=== PATIENT | male | born 1950 | race Hispanic/Latino ===

== ENCOUNTER 2019-07-02 12:39 | Inpatient (IN) | payer MEDICARE, OTHER ==
[~2019-07-02] VITALS: Ht 182.9 cm; Wt 83.5 kg
[~2019-07-02 12:39] MED LIST: AMLO5TAB9 PO; ASPI-555 PO; LISI40TA4 PO; METO-408 PO; SIMV-46 PO
[2019-07-02] MEDS ORDERED: ASPIRIN 325 MG TABLET ONE (13:04)
[2019-07-02] MEDS ORDERED: ASPIRIN 81MG TAB.CHEW ONE (13:07)
[2019-07-02 13:13] LABS: BASOPHILS % (AUTO) 0.1 % (0.0-5.0); EOSINOPHILS % (AUTO) 1.7 % (0.0-8.0); HEMATOCRIT 41.9 % (42-54); MEAN CORPUSCULAR HEMOGLOBIN 30.5 pg (27.0-33.0); MEAN CORPUSCULAR HGB CONC 34.1 g/dL (32.0-36.0); MEAN CORPUSCULAR VOLUME 89.3 fL (79-99); NEUTROPHILS % (AUTO) 77.9 % (40.0-77.0); PLATELET COUNT (AUTO) 191 K/uL (130-400); RED BLOOD CELL COUNT(AUTO) 4.69 MIL/uL (4.50-6.20); RED CELL DISTRIBUTION WIDTH 12.3 % (11.0-15.5); WHITE BLOOD COUNT (AUTO) 8.8 K/uL (4.8-10.8)
[2019-07-02] MEDS ORDERED: NITROGLYCERIN 1GM/1 INCH PACKET TD ONE ×3 (13:16→20:45)
[2019-07-02 13:27] LABS: CREATININE 1.3 mg/dL (0.5-1.5); INR 1.03 (0.85-1.15); PARTIAL THROMBOPLASTIN TIME 28.2 SEC (26.3-35.5); POTASSIUM 3.8 mmol/L (3.5-5.1); PROTHROMBIN TIME 11.1 SEC (9.6-11.6)
[2019-07-02 13:32] LABS: ALBUMIN 4.3 g/dL (3.5-5.0); BILIRUBIN,TOTAL 0.9 mg/dL (0.2-1.0); TOTAL PROTEIN, SERUM 8.1 g/dL (6.0-8.3)
[2019-07-02] MEDS ORDERED: HYDRALAZINE HCL 20 MG/ML VIAL IV PRN (14:45)
[2019-07-02] MEDS ORDERED: ATORVASTATIN CALCIUM 20 MG TABLET PO SCH (14:45)
[2019-07-02] MEDS ORDERED: METOPROLOL TARTRATE 25 MG TAB PO SCH (14:45)
[2019-07-02 15:02] LABS: APPEARANCE,URINE CLOUDY (CLEAR); BILIRUBIN,URINE MODERATE (NEGATIVE); GLUCOSE, URINE (UA) 100 mg/dL (NEGATIVE); KETONES,URINE 15 mg/dL (NEGATIVE); LEUKOCYTE ESTERASE ,URINE MODERATE (NEGATIVE); NITRATE,URINE POSITIVE (NEGATIVE); OCCULT BLOOD,URINE LARGE (NEGATIVE); PROTEIN,URINE >=300 mg/dL (NEGATIVE)
[2019-07-02 15:07] LABS: COLOR,URINE RED (YELLOW)
[2019-07-02 15:26] LABS: RBC,URINE TNTC /HPF (0-1)
[2019-07-02 15:27] LABS: BACTERIA,URINE Moderate /HPF (None Seen); WBC,URINE 26-50 /HPF (0-1)
[2019-07-02] MEDS ORDERED: METOPROLOL TARTRATE 25 MG TAB ONE ×2 (15:40→22:21)
[2019-07-02 17:35] LABS: THYROID STIMULATING HORMONE 0.89 uIU/mL (0.36-3.74)
[2019-07-02] MEDS ORDERED: ATORVASTATIN CALCIUM 40 MG TABLET ONE (22:21)
[2019-07-03 05:25] LABS: CREATINE KINASE, TOTAL 258 U/L (21-232); MYOGLOBIN 142 ng/mL (10-92); TROPONIN I < 0.04 ng/mL (0.00-0.06)
[2019-07-03] MEDS ORDERED: ASPIRIN 81MG TAB.CHEW ONE (08:09)
[2019-07-03] MEDS ORDERED: ENOXAPARIN SODIUM 30 MG/0.3 ML SQ ONE (08:10)
[2019-07-03] MEDS ORDERED: METOPROLOL TARTRATE 25 MG TAB ONE (08:11)
[2019-07-03] MEDS ORDERED: NITROGLYCERIN 1GM/1 INCH PACKET TD ONE ×2 (08:11→18:41)
[2019-07-03] MEDS ORDERED: FAMOTIDINE 20MG TAB 20 MG TAB ONE (08:20)
[2019-07-03] MEDS ORDERED: ATOR20TA65 PO (10:40)
[2019-07-03] MEDS ORDERED: OMEP40CA13 PO (10:40)
[2019-07-03] MEDS ORDERED: METO25TA6 PO (10:40)
[2019-07-03] MEDS ORDERED: LACT1CAP78 PO (10:41)
[2019-07-03] MEDS ORDERED: ACETAMINOPHEN EXTRA STRENGTH 500 MG TABLET ONE (16:52)
[2019-07-03] MEDS ORDERED: ACETAMINOPHEN EXTRA STRENGTH 500 MG TABLET PO PRN (18:00)
--- NOTE | 2019-07-03 19:17 | NUR ---
cm note met with patient and states resides at home with spouse, independent with adls and ambulation.. no dme. dc plan is back home. no dc needs. Addendum: 07/03/19 at 1919 by JOSE MANUEL DOE CM Amended: Links added.
[2019-07-03 21:32] VITALS: BP 136/87
[2019-07-03] MEDS: ASPIRIN 81MG TAB.CHEW PO SCH (22:55)
[2019-07-03] MEDS: ENOXAPARIN SODIUM 30 MG/0.3 ML SQ SCH (22:55)
[2019-07-03] MEDS: NITROGLYCERIN 1GM/1 INCH PACKET TD SCH ×4 (22:55→23:19)
[2019-07-03] MEDS: FAMOTIDINE 20MG TAB 20 MG TAB PO SCH ×3 (22:55→23:12)
[2019-07-03] MEDS: ATORVASTATIN CALCIUM 40 MG TABLET PO SCH ×2 (22:55→23:12)
[2019-07-03] MEDS: CEFTRIAXONE SODIUM 1 GM IVP SCH ×2 (22:55→23:12)
[2019-07-03] MEDS: METOPROLOL TARTRATE 25 MG TAB PO SCH ×3 (22:55→23:11)
[2019-07-03 23:11] VITALS: BP 126/72
[2019-07-04 04:18] VITALS: BP 120/68
[2019-07-04] MEDS: NITROGLYCERIN 1GM/1 INCH PACKET TD SCH ×4 (05:00→22:38)
[2019-07-04 08:11] VITALS: BP 119/78
[2019-07-04] MEDS: METOPROLOL TARTRATE 25 MG TAB PO SCH ×2 (10:10→21:00)
[2019-07-04] MEDS: ENOXAPARIN SODIUM 30 MG/0.3 ML SQ SCH (10:11)
[2019-07-04] MEDS: FAMOTIDINE 20MG TAB 20 MG TAB PO SCH ×2 (10:12→21:00)
[2019-07-04] MEDS: ASPIRIN 81MG TAB.CHEW PO SCH (10:12)
[2019-07-04 11:53] VITALS: BP 120/76
[2019-07-04 16:00] VITALS: BP 130/79
[2019-07-04 19:00] VITALS: BP 124/82
[2019-07-04] MEDS: ATORVASTATIN CALCIUM 40 MG TABLET PO SCH (21:00)
[2019-07-04] MEDS: CEFTRIAXONE SODIUM 1 GM IVP SCH (21:00)
[2019-07-04 22:36] LABS: BASOPHILS % (AUTO) 0.5 % (0.0-5.0); EOSINOPHILS % (AUTO) 0.9 % (0.0-8.0); LYMPHOCYTES % (AUTO) 31.5 % (21.0-51.0); MEAN CORPUSCULAR HEMOGLOBIN 29.8 pg (27.0-33.0); MEAN CORPUSCULAR HGB CONC 32.7 g/dL (32.0-36.0); MEAN CORPUSCULAR VOLUME 91.1 fL (79-99); MONOCYTES % (AUTO) 8.9 % (3.0-13.0); NEUTROPHILS % (AUTO) 57.6 % (40.0-77.0); PLATELET COUNT (AUTO) 171 K/uL (130-400); RED CELL DISTRIBUTION WIDTH 12.2 % (11.0-15.5); WHITE BLOOD COUNT (AUTO) 6.4 K/uL (4.8-10.8)
[2019-07-04 23:00] VITALS: BP 124/76
[2019-07-04 23:23] LABS: CARBON DIOXIDE 28 mmol/L (21-32); CHLORIDE 103 mmol/L (101-111); CREATININE 1.4 mg/dL (0.5-1.5); GLOMERULAR FILTR. RATE CALC 53 mL/min (>60); GLUCOSE,RANDOM 122 mg/dL (70-105); POTASSIUM 3.6 mmol/L (3.5-5.1); SODIUM SERUM 141 mmol/L (136-145); UREA NITROGEN, BLOOD 15 mg/dL (7-18)
[2019-07-05 04:00] VITALS: BP 122/56
[2019-07-05] MEDS: NITROGLYCERIN 1GM/1 INCH PACKET TD SCH (05:19)
--- NOTE | 2019-07-05 08:15 | NUR ---
AM ASSESSMENT PT LAYING IN BED, WATCHING TV. SPOUSE @ BEDSIDE. A/O X 3. NO SOB. NO DISTRESS NOTED. DENIES CHEST PAIN OR DISCOMFORT. DENIES PALPITATIONS. TELE: SB. DENIES N/V AND/OR DIARRHEA. UP AD EMIL. INSTRUCTED TO CALL FOR ASSISTANCE. CALL MATEUS W/IN REACH.
[2019-07-05 08:30] VITALS: BP 126/75
[2019-07-05] MEDS: ASPIRIN 81MG TAB.CHEW PO SCH (08:50)
[2019-07-05] MEDS: FAMOTIDINE 20MG TAB 20 MG TAB PO SCH ×2 (08:50→08:58)
[2019-07-05] MEDS: METOPROLOL TARTRATE 25 MG TAB PO SCH (08:50)
[2019-07-05] MEDS: ENOXAPARIN SODIUM 30 MG/0.3 ML SQ SCH (08:51)
[2019-07-05] MEDS ORDERED: LEVOFLOXACIN 500 MG TABLET PO SCH (09:00)
[2019-07-05] MEDS ORDERED: TAMSULOSIN HCL 0.4 MG CAP.ER.24H PO SCH (09:00)
[2019-07-05] MEDS ORDERED: PANTOPRAZOLE SODIUM 40 MG TABLET.DR PO SCH (09:00)
[2019-07-05] MEDS ORDERED: LEVO500T2 PO (09:07)
[2019-07-05] MEDS ORDERED: TAMS-1 PO (09:07)
--- NOTE | 2019-07-05 10:45 | NUR ---
DISCHARGE VERBAL & WRITTEN DISCHARGE INSTRUCTION REVIEWED & GIVEN TO PT & SPOUSE. QUESTIONS ENCOURAGED & CLARIFIED. PROPER CARE & MGT OF CHEST PAIN REVIEWED. NEW PRESCRIBED MEDICATIONS REVIEWED. REINFORCED IMPORTANCE OF COMPLETING ABX THERAPY INDICATED. STATES UNDERSTANDING. INFORMED PRESCRIPTION TRANSMITTED TP PHARMACY IN FILE. PT TO F/U W/PCP, CARDIOLOGY, & GI MD. TELE JENNIFER REMOVED. IV DC'D. PT & SPOUSE TO GATHER PERSONAL BELONGINGS. WILL NOTIFY STAFF WHEN READY TO BE TAKEN TO PRIVATE VEHICLE.
--- NOTE | 2019-07-05 11:05 | NUR ---
DISCHARGE PT TAKEN TO PRIVATE VEHICLE VIA WC BY Claire BORRERO PCP, ACCOMPANIED BY SPOUSE. NO DISTRESS NOTED.
== END 2019-07-05 11:05 | disposition home or self-care (01) | DRG 392 ==
LOC: EDH 12:39 → EDHIP 14:33 → 2DH 07-03 21:03
PROVIDERS: ADMIT Family Medicine; ATTEND Family Medicine
DX: K22.2 Esophageal obstruction (principal); N39.0 Urinary tract infection, site not specified; I25.110 Atherosclerotic heart disease of native coronary artery with unstable angina pectoris; K21.9 Gastro-esophageal reflux disease without esophagitis; Z95.5 Presence of coronary angioplasty implant and graft; I25.2 Old myocardial infarction; R31.0 Gross hematuria; E78.5 Hyperlipidemia, unspecified; I10 Essential (primary) hypertension; N40.0 Benign prostatic hyperplasia without lower urinary tract symptoms; Z80.8 Family history of malignant neoplasm of other organs or systems; Z82.5 Family history of asthma and other chronic lower respiratory diseases; Z90.79 Acquired absence of other genital organ(s); Z82.49 Family history of ischemic heart disease and other diseases of the circulatory system; Z82.3 Family history of stroke
CPT/HCPCS: 36415; 71045; 74018; 76770; 80048; 80053; 80061; 81001; 82550; 83735; 83874; 84100; 84145; 84443; 84484; 85025; 85610; 85730; 93005; 93880; G0378; J0696; J1650

== ENCOUNTER → 2023-03-11 | Outpatient (CLI) | payer MEDICARE ==
[~2023-03-11] MED LIST changes: +AMLO-257 PO; -AMLO5TAB9 PO; -ASPI-555 PO; +ASPI-556 PO; +ATOR20TA65 PO; +LACT1CAP78 PO; +LEVO500T2 PO; -LISI40TA4 PO; +LISI40TA9 PO; -METO-408 PO; +METO25TA6 PO; +OMEP40CA21 PO; -SIMV-46 PO; +TAMS-1 PO
== END | disposition home or self-care (01) ==
LOC: RAH 12:23
PROVIDERS: ATTEND Internal Medicine Gastroenterology
DX: R13.12 Dysphagia, oropharyngeal phase (principal); R63.30 Feeding difficulties, unspecified
CPT/HCPCS: 74230; 92611

== ENCOUNTER 2023-10-12 05:11 | Emergency (ER) | payer MEDICARE ==
[~2023-10-12] VITALS: Ht 182.9 cm; Wt 89.4 kg
[2023-10-12 06:05] LABS: BASOPHILS # (AUTO) 0.04 K/uL (0.00-0.20); BASOPHILS % (AUTO) 0.8 % (0.0-5.0); EOSINOPHILS # (AUTO) 0.09 K/uL (0.00-0.70); EOSINOPHILS % (AUTO) 1.8 % (0.0-8.0); HEMATOCRIT 40.2 % (42-54); IMMATURE GRANULOCYTE ABSOLUTE 0.05 K/uL (0-1); LYMPHOCYTES # (AUTO) 1.2 K/uL (1.0-4.8); LYMPHOCYTES % (AUTO) 23.5 % (21.0-51.0); MEAN CORPUSCULAR HEMOGLOBIN 31.4 pg (27.0-33.0); MEAN CORPUSCULAR HGB CONC 35.6 g/dL (32.0-36.0); MEAN CORPUSCULAR VOLUME 88.2 fL (79-99); MONOCYTES # (AUTO) 0.5 K/uL (0.1-1.0); MONOCYTES % (AUTO) 9.9 % (3.0-13.0); NEUTROPHILS # (AUTO) 3.1 K/uL (1.8-7.7); PLATELET COUNT (AUTO) 155 K/uL (130-400); RED BLOOD CELL COUNT(AUTO) 4.56 MIL/uL (4.50-6.20); RED CELL DISTRIBUTION WIDTH 12.1 % (11.0-15.5); WHITE BLOOD COUNT (AUTO) 4.9 K/uL (4.8-10.8)
[2023-10-12] MEDS: HYDRALAZINE HCL 10 MG TABLET PO SCH (06:19)
[2023-10-12 06:24] LABS: ALBUMIN 3.4 g/dL (3.5-5.0); BILIRUBIN,TOTAL 0.4 mg/dL (0.2-1.0); CREATININE 1.1 mg/dL (0.5-1.3); POTASSIUM 3.4 mmol/L (3.5-5.1); TOTAL PROTEIN, SERUM 6.9 g/dL (6.0-8.3)
[2023-10-12] MEDS ORDERED: ACET-66 PO (08:12)
[2023-10-12 08:16] VITALS: BP 150/94; PULSE 56; RESP 16; O2SAT 98
== END 2023-10-12 08:30 | disposition home or self-care (01) ==
LOC: EDH 05:11
DX: R51.9 Headache, unspecified (principal); H57.11 Ocular pain, right eye; I10 Essential (primary) hypertension; Z79.82 Long term (current) use of aspirin; Z79.899 Other long term (current) drug therapy; Z98.890 Other specified postprocedural states
CPT/HCPCS: 36415; 70450; 80053; 85025; 93005

== ENCOUNTER → 2023-11-07 | Outpatient (CLI) | payer MEDICARE ==
[~2023-11-07] MED LIST changes: +ACET-66 PO
== END | disposition home or self-care (01) ==
LOC: SHCH 12:55
PROVIDERS: ATTEND Internal Medicine Cardiovascular Disease
DX: I08.3 Combined rheumatic disorders of mitral, aortic and tricuspid valves (principal)
CPT/HCPCS: 93306

== ENCOUNTER → 2023-11-14 | Outpatient (CLI) | payer MEDICARE | END | disposition home or self-care (01) | LOC: SHCH 07:46 | PROVIDERS: ATTEND Internal Medicine Cardiovascular Disease | DX: I87.2 Venous insufficiency (chronic) (peripheral) (principal); R09.89 Other specified symptoms and signs involving the circulatory and respiratory systems; F41.9 Anxiety disorder, unspecified; Z79.899 Other long term (current) drug therapy | CPT/HCPCS: 93880 ==

== ENCOUNTER → 2023-11-17 | Outpatient (CLI) | payer MEDICARE | END | disposition home or self-care (01) | LOC: SHCH 09:53 | PROVIDERS: ATTEND Internal Medicine Cardiovascular Disease | DX: I87.2 Venous insufficiency (chronic) (peripheral) (principal); R60.0 Localized edema; I11.9 Hypertensive heart disease without heart failure; I25.10 Atherosclerotic heart disease of native coronary artery without angina pectoris; E78.5 Hyperlipidemia, unspecified; Z95.5 Presence of coronary angioplasty implant and graft | CPT/HCPCS: 93970 ==

== ENCOUNTER 2024-12-05 09:28 | Observation (INO) | payer MEDICARE ==
[2024-12-02 13:51] LABS: IMMATURE GRANULOCYTE ABSOLUTE 0.05 K/uL (0-1); NUCLEATED RED BLOOD CELLS 0.0 % (0.0-0.19); PLATELET COUNT (AUTO) 166 K/uL (130-400); RED BLOOD CELL COUNT(AUTO) 4.79 MIL/uL (4.50-6.20); RED CELL DISTRIBUTION WIDTH 12.5 % (11.0-15.5); WHITE BLOOD COUNT (AUTO) 5.7 K/uL (4.8-10.8)
[2024-12-02 14:01] LABS: CREATININE 1.1 mg/dL (0.5-1.3); GLOMERULAR FILTR. RATE CALC 70.0 mL/min (>90); GLUCOSE,RANDOM 108.0 mg/dL (70-105); SODIUM SERUM 140.0 mmol/L (136-145); UREA NITROGEN, BLOOD 13.0 mg/dL (7-18)
[2024-12-02 14:02] LABS: INR 1.03 (0.85-1.15)
[2024-12-02 14:19] VITALS: BP 151/83; PULSE 57; RESP 19; TEMP 97.9
--- NOTE | 2024-12-02 14:41 | HMCIMG ---
EXAM: CR Chest, 1 View. CLINICAL HISTORY: PRE OP COMPARISON: None provided. FINDINGS: LUNGS: Density at the right lung base may reflect a pulmonary nodule or nipple shadow, overall dimension is 1.1 x 1.2 cm. Recommend repeat radiographs with nipple markers or CT imaging for further evaluation. PLEURAL SPACES: No evidence of pleural effusion or pneumothorax. MEDIASTINUM: Cardiac size and mediastinal contours within normal limits. BONES: No aggressive appearing osseous lesion seen. IMPRESSION: 1. 1.1 x 1.2 cm density at the right lung base, may represent pulmonary nodule versus nipple shadow. Recommend repeat radiographs with nipple markers or CT imaging for further evaluation. /[place]
--- NOTE | 2024-12-02 16:24 | NUR ---
CHEST X RAY YANA CARLOS NOTIFIED OF CHEST-X-RAY. OKAY TO PROCEED. SAMANTA GOMEZ INFORMED.
--- NOTE | 2024-12-02 21:31 | EKG ---
[facility] Test Date: 2024-12-02 Test Time: 13:37:19 Pat Name: BRYANNA GAINES Department: [facility] Room: Gender: Marketing Program Manager: [id number] : 1950 Requested By: BRYANNA TOSCANO Order Number: [id number] Reading MD: Amado Obando Measurements Intervals [place] Rate: 52 P: 42 DC: 187 QRS: 9 QRSD: 91 T: 60 QT: 454 QTc: 424 Interpretive Statements Sinus rhythm Compared to ECG 10/12/2023 05:43:52 No significant changes Electronically Signed On 12-03-2024 19:48:55 CDT by Amado Obando Please click the below link to view image of tracing.
[~2024-12-05] VITALS: Ht 182.9 cm; Wt 87.3 kg
[2024-12-05] VITALS (10 sets, daily range): BP systolic 102–165; BP diastolic 61–93; PULSE 50–84; RESP 13–18; TEMP 97–97.8; O2SAT 98
[~2024-12-05 09:28] MED LIST changes: -ACET-66 PO; -LACT1CAP78 PO; -LEVO500T2 PO; +LISI20TA24 PO; -LISI40TA9 PO; +NITR0.4T50 SL; -TAMS-1 PO
[2024-12-05] MEDS: 0.9%NACL 1000ML 1,000 ML IV SCH ×2 (10:15→14:30)
[2024-12-05] MEDS ORDERED: HEParin-NS 1,000 UNIT/500 ML 1,000 ML IV ONE (12:19)
[2024-12-05] MEDS ORDERED: NITROGLYCERIN 50MG VIAL ONE (12:19)
[2024-12-05] MEDS ORDERED: LIDOCAINE HCL 400MG/20ML VIAL ONE (12:19)
[2024-12-05] MEDS ORDERED: IOHEXOL 350 MG/ML 100ML INFUS..BTL IV ONE ×2 (12:19→14:00)
[2024-12-05] MEDS ORDERED: MIDAZOLAM HCL 1 MG/ML 2ML VIAL ONE ×2 (12:34→13:56)
[2024-12-05] MEDS ORDERED: BIVALIRUDIN 250 MG/VIAL IV ONE ×2 (12:50→13:23)
[2024-12-05] MEDS ORDERED: HEParin-NS 1,000 UNIT/500 ML 500 ML IV ONE (13:24)
[2024-12-05] MEDS ORDERED: ATROPINE 1MG SYG IVP ONE (13:48)
[2024-12-05] MEDS ORDERED: EPTIFIBATIDE 75MG/100ML BOTTLE 100 ML IV ONE (14:02)
[2024-12-05] MEDS ORDERED: ADENOSINE 6MG VIAL IV ONE (14:02)
[2024-12-05] MEDS ORDERED: NITROGLYCERIN 0.4 MG SL TAB SL PRN (14:30)
[2024-12-05] MEDS ORDERED: DEXTROSE 50%-WATER 50 ML DISP.SYRIN IV PRN (14:30)
[2024-12-05] MEDS ORDERED: GLUCAGON 1MG KIT 1 MG ML IM PRN (14:30)
--- NOTE | 2024-12-05 15:14 | PRN ---
PROCEDURES: 1. Right common femoral arterial sheath placement. 2. Selective coronary angiogram. 3. Angioplasty to mid and distal LAD 4. Lithotripsy angioplasty to mid LAD with a 4 mm x 12 mm lithotripsy balloon for a total of eight treatments with shockwave device deployed to six atmospheres 5. Intravascular ultrasound of proximal mid and distal LAD. 6. 3 mm x 34 mm jimmy Hamel stent to mid and distal LAD initially deployed to 3.20 mm and then post dilated to 3.50 mm 7. 4.5 mm x 26 mm jimmy Hamel stent to mid LAD in an overlapping fashion with previously placed 3 mm stent deployed to 4.50 mm. INDICATION: Abnormal stress test Class three angina DESCRIPTION OF PROCEDURE: The patient was brought to the catheterization suite and prepped and draped in sterile fashion. IV was started, and not already in place and both groins were exposed for arterial access. 1% lidocaine was used for local anesthesia and then a micropuncture kit was used to gain access once free-flowing blood was seen, modified Seldinger technique was utilized to place a 6 [place] sheath into the right common femoral artery. Next, preformed JL4 and JR 4 catheters were used to selectively engage the [place] coronary vessels and multiple hand contrast injections were performed in different views to define the coronary anatomy. Please see below FINDINGS: The left main artery bifurcates in the LAD and left circumflex in his free of significant stenosis. The stent in the mid LAD has not stent restenosis of 95-98% with an area of stenosis after a stent of 80% and in the distal LAD of 70%. Diagonal branch 1. And diagonal branch 2., high off the LAD and are free of any significant disease. There was a large septal transaction coordinator at diagonal branch 2. Which was patent. The left circumflex artery in its proximal mid segment is free of any significant disease in the distal interventricular groove circ there was 99% in stent restenosis present. The right coronary artery has no appreciable stenoses or atherosclerosis present. It is a dominant system giving rise to the RPDA and RPL. INTERVENTIONAL REPORT: After diagnostic angiography was performed it was felt intervention should be attempted in a staged fashion to the LAD and then left circumflex. Therefore a six [place] q.4 guide catheter was placed into the left coronary system and a choice PT extra-support wire was placed in the distal ongoing LAD. Initially a 2.5 mm x 20 mm balloon semi compliant was then used to pre dilate the affected regions in overlapping fashion. Intravascular ultrasound was performed assessing previously placed stent and the degree of calcium burden above the previously placed stent as well as the sizing of the stent from 17 years ago. This vessel appeared to be 4.5-5 mm in diameter in the mid and proximal portion of previously placed LAD stent. There was also a significant calcium burden noted. Next we went in an with a 3.5 mm x 12 mm noncompliant balloon up to 3.7 mm before significant in stent restenosis dog bone expanded the stent. Next I went in with a 4 mm x 12 mm shockwave device and performed lithotripsy on midportion of LAD and off-label use on proximal portion of previously placed stent. This was done for a total of eight treatments. This was done at six atmospheres. Next I then placed a 3 mm x 34 mm jimmy Hamel stent to the distal LAD covering distal 70% lesion and brought back up to mid section and deployed to 3.20 mm. Next I used the 4.5 mm x 26 mm jimmy Hamel stent in an overlapping fashion with 3 mm stent up to the mid section just below diagonal branch 2. And deployed to 4.5 mm. Follow up intravascular ultrasound revealed the distal portion of the distal LAD stent to be or to need further postdilatation therefore we I went back in with a 3.5 mm x 12 mm NC balloon and post dilated the 3 mm stent to 3.50 mm. Follow up contrast injection well no evidence of dissection or perforation with JUAN two flow noted then adenosine was administered total of 200 mics initially given at 50 mcg then repeated at 50 mcg and then finally at 100 mcg. JUAN three flow then resulted. At end of case Perclose device was used for closure of arteriotomy site and no complications occurred. and RECOMMENDATIONS: Recommend patient stay in the hospital overnight for IV hydration. We will start Integrilin drip. Will start dual antiplatelet therapy Schedule patient for intervention to left circumflex in stent restenosis on Thursday of this week. BRYANNA TOSCANO MD Dec 05, 2024 15:14
--- NOTE | 2024-12-05 15:30 | NUR ---
STENT CARD GIVEN TO PTS
--- NOTE | 2024-12-05 16:22 | NUR ---
DR. KIM AT BEDSIDE WITH PT
--- NOTE | 2024-12-05 17:52 | HP ---
[facility] HISTORY AND PHYSICAL Date of Service: Dec 05, 2024 Time of Service: 17:43 HISTORY OF PRESENT ILLNESS: 74-year-old male with past medical history of hypertension, hyperlipidemia, coronary artery disease, history of esophageal stricture status post balloon dilation, coronary artery disease status post stent placement who presented to the hospital secondary to dyspnea. History is obtained from patient and from chart review. Patient was seen by cardiology clinic as outpatient and had undergone a CCTA which showed 70% ISR in the mid LAD stent placed in 2007. Secondary to persistent symptoms patient was recommended to undergo left heart catheterization. Patient underwent heart catheterization today by Dr Allison and was found to have the following findings : The left main artery bifurcates in the LAD and left circumflex in his free of significant stenosis. The stent in the mid LAD has not stent restenosis of 95-98% with an area of stenosis after a stent of 80% and in the distal LAD of 70%. Diagonal branch 1. And diagonal branch 2., high off the LAD and are free of any significant disease. There was a large septal certified industrial hygienist at diagonal branch 2. Which was patent. The left circumflex artery in its proximal mid segment is free of any significant disease in the distal interventricular groove circ there was 99% in stent restenosis present. The right coronary artery has no appreciable stenoses or atherosclerosis present. It is a dominant system giving rise to the RPDA and RPL. Patient underwent angioplasty to mid and distal LAD, lithotripsy angioplasty to mid LAD with balloon. He had a stent placement from mid and distal LAD and a nother stent to mid LAD in overlapping fashion. Postprocedure patient currently is resting in bed. He denies any active chest p ain, shortness of breath, abdominal pain, nausea, vomiting, fever, chills. Denies any dysuria, abdominal pain. REVIEW OF SYSTEMS CONSTITUTIONAL: Denies fevers, chills, or night sweats. No unintentional weight loss reported. NEUROLOGICAL: Denies headache, amaurosis fugax, motor weakness, sensory deficit, vertigo/spinning sensation, gait abnormalities, or tremors. ENT: No hearing loss, otalgia, otorrhea, rhinitis, rhinorrhea, hoarseness, or sore throat. CARDIOVASCULAR: Denies any exertional angina, dyspnea on exertion, orthopnea, paroxysmal nocturnal dyspnea, palpitations, life-threatening arrhythmias, claudication. PULMONARY: Denies any shortness of breath, cough, phlegm/sputum, hemoptysis, pleuritic chest pain. SLEEP: Denies morning headaches, daytime somnolence or napping. Denies difficulty falling asleep, staying asleep, waking from sleep. Denies knowledge of snoring. GASTROINTESTINAL: Denies any type of dysphagia to either liquids or solids. Denies nausea, vomiting, pyrosis, early satiety, abdominal pain, diarrhea, constipation, or changes in stool consistency or caliber. Denies coffee-ground emesis, hematemesis, hematochezia, or melanotic stools. GENITOURINARY: Denies frequency, urgency, nocturia, hematuria or incontinence (Storage/Irritative symptoms.) Low urinary stream, straining to void, urinary intermittency or hesitancy, splitting of the voiding stream, terminal dribbling. ENDOCRINOLOGIC: Denies polyuria, polydipsia, polyphagia or heat/cold intolerances. HEMATOLOGIC: Denies thrombophilia/previous clots, or coagulopathy/bleeding disorders. ONCOLOGIC: Denies personal history of malignancy. DERMATOLOGIC: Denies rashes or pruritus. PSYCHIATRIC: Denies any suicidal or homicidal ideation. Denies hallucinations. PAST MEDICAL HISTORY: Hypertension, hyperlipidemia, coronary artery disease, history of esophageal stricture PAST SURGICAL HISTORY: History balloon dilation for esophageal stricture, history of heart catheterization, history of right wrist surgery, history of left knee surgery PAST SOCIAL HISTORY: Denied smoking, alcohol, drug use FAMILY HISTORY: Denied any pertinent family history Coded Allergies: No Known Drug Allergies (Unverified Allergy, Unknown, 12/30/16) PHYSICAL EXAM GENERAL APPEARANCE: The patient is awake, alert, and oriented, in no acute cardiopulmonary distress. NEUROLOGICAL: Cranial nerves II-XII grossly intact. Motor is 5/5 in bilateral upper and lower extremities proximal to distal. No sensory deficits. HEENT: Face is symmetric. Pupils are equal and reactive. Extraocular movements are intact. NECK: Supple. No JVD. No thyromegaly. No submental, submandibular, pre-/post auricular, occipital or supraclavicular lymphadenopathy. CHEST: Normal chest expansion. No Telemetry. LUNGS: Absence of any rales, rhonchi or any wheezing. CARDIOVASCULAR: Regular. S1 and S2 normal. No appreciable rubs, murmurs or gallops. ABDOMEN: Soft, nontender, and nondistended. There is no rebound, voluntary guarding, or rigidity. : Deferred. No Yen. EXTREMITIES: Non-edematous and not cyanotic. No clubbing. Good capillary refill. SKIN: No skin breakdown. Vital Sign (Last 24 Hours) 12/05/24 16:40 Pulse 58 Resp 13 B/P (MAP) 165/87 Pulse Ox 98 O2 Delivery Room Air FiO2 21 LABS: Current Medications Medications (Trade) Dose Ordered Sig/Flavia Route PRN Reason Start Time Stop Time Status Last Admin Dose Admin Acetaminophen (TYLenol 500MG TAB) 500 mg Q6H PRN PO MILD PAIN (1-3) 12/05/24 17:00 01/04/25 16:59 Amlodipine Besylate (NorvASC 5MG TAB) 5 mg AM PO 12/06/24 09:00 01/05/25 08:59 Aspirin (Aspirin 81mg Ec Tab) 81 mg AM PO 12/06/24 09:00 01/05/25 08:59 Atorvastatin Calcium (LIPItor 20MG) 20 mg DAILY PO 12/06/24 09:00 01/05/25 08:59 Clopidogrel Bisulfate (plaVIX 75MG) 75 mg DAILY PO 12/06/24 09:00 01/05/25 08:59 Dextrose (D50w) 50 ml AD PRN IV HYPOGLYCEMIA PROTOCOL 12/05/24 14:30 01/04/25 14:29 Glucagon (Glucagon 1mg Kit) 1 mg AD PRN IM HYPOGLYCEMIA PROTOCOL 12/05/24 14:30 01/04/25 14:29 Hydralazine HCl (APRESOLine 20MG INJ) 10 mg Q20M PRN IV SBP ABOVE 160MMHG 12/05/24 14:30 01/04/25 14:29 Lisinopril (Prinivil 20mg) 20 mg BID PO 12/05/24 21:00 01/04/25 20:59 Metoprolol Tartrate (loprESSOR) 5 mg Q5M PRN IV Heart rate greater than 110 12/05/24 14:30 Metoprolol Tartrate (loprESSOR) 25 mg BID PO 12/05/24 21:00 01/04/25 20:59 Nitroglycerin (Nitrostat) 0.4 mg AD PRN SL CHEST PAIN 12/05/24 14:30 01/04/25 14:29 Pantoprazole Sodium (PROTonix 40MG TAB) 40 mg DAILY PO 12/06/24 09:00 01/05/25 08:59 Sodium Chloride 1,000 ml @ 0 mls/hr Q0M IV 12/05/24 09:30 01/04/25 09:29 12/05/24 10:15 20 MLS/HR Sodium Chloride 1,000 ml @ 100 mls/hr Q10H IV 12/05/24 14:30 12/05/24 20:29 DIAGNOSTICS / RADIOLOGY: [ ] ASSESSMENT: Class three angina status post heart catheterization with angioplasty and stent placement to mid and distal LAD, mid LAD Coronary artery disease Hypertension Hyperlipidemia History of esophageal stricture status post balloon dilation PLAN: - patient to continue admission in [facility] -in reference to coronary artery disease status post stent placement. Patient will continue on aspirin and Plavix per Cardiology recommendations. Patient's home medications will be reconciled and is antihypertensives will be restarted -obtain CBC and BMP for tomorrow -further orders per hospitalization course. Advanced Care Planning Which of the following were discussed: Hospice care: Yes __ No _x_ Therapeutic options: Yes __ No __ Advance directives: Yes __ No __ Other discussions: Pt is full code Discussed with who?: patient (Patient, family or surrogates) Voluntary nature of this service was explained to the patient? Yes _x_ No __ Amount of time spent: 25 minutes MICHEAL Leone MD, MD Dec 05, 2024 17:52
--- NOTE | 2024-12-05 18:46 | NUR ---
REPORT GIVEN TO NURSE BARNHART 2ND FLOOR
[2024-12-05] MEDS: LISINOPRIL 20 MG TABLET PO SCH (21:00)
[2024-12-06] VITALS: BP 139/81; PULSE 55; RESP 18; TEMP 98.3
[2024-12-06 04:00] VITALS: BP 136/79; PULSE 56; RESP 18; TEMP 98.2
[2024-12-06 07:00] VITALS: BP 155/78; PULSE 59; RESP 18; TEMP 98.3
[2024-12-06] MEDS ORDERED: 0.9% NACL 500ML IV.SOLN 500 ML IV SCH (07:00)
[2024-12-06 07:27] LABS: NUCLEATED RED BLOOD CELLS 0.0 % (0.0-0.19); PLATELET COUNT (AUTO) 141.0 K/uL (130-400); RED BLOOD CELL COUNT(AUTO) 4.61 MIL/uL (4.50-6.20); RED CELL DISTRIBUTION WIDTH 12.5 % (11.0-15.5); WHITE BLOOD COUNT (AUTO) 6.9 K/uL (4.8-10.8)
[2024-12-06 07:37] LABS: CREATININE 1.0 mg/dL (0.5-1.3); GLOMERULAR FILTR. RATE CALC 78.0 mL/min (>90); GLUCOSE,RANDOM 103.0 mg/dL (70-105); SODIUM SERUM 140.0 mmol/L (136-145); UREA NITROGEN, BLOOD 15.0 mg/dL (7-18)
--- NOTE | 2024-12-06 07:56 | PN ---
PROGRESS NOTE PROBLEM LIST: History of coronary artery disease status post remote anterior STEMI 2007 Angioplasty and stent placement to left anterior descending artery mid section 3.5 mm x 20 mm medicated stent as well as a 2.5 mm x 20 mm medicated stent to distal left circumflex in [address] angiogram revealing evidence of InStent restenosis Status post coronary angiography on December 05, 2024 revealing InStent restenosis of 95% of LAD stent and 99% of left circumflex stent 3 mm x 34 mm medicated stent jimmy [place] to mid distal LAD and a 4.5 mm x 26 mm jimmy [place] stent to proximal mid LAD INTERIM HISTORY OF PRESENT ILLNESS: Overnight the patient did well did have some residual chest discomfort last night postprocedure but overall has had no recurrent since and has ambulated without complaints. Medications have been reviewed. Telemetry has been unremarkable. Laboratory data checked this morning unremarkable REVIEW OF SYSTEMS: No fever, headache, chest pain, abdominal pain, nausea, vomiting, or diarrhea. VITAL SIGNS Vital Signs Date Time Temp Pulse Resp B/P (MAP) Pulse Ox O2 Delivery O2 Flow Rate FiO2 12/06/24 04:00 98.2 56 18 136/79 95 Room Air 12/05/24 20:00 0 21 Laboratory Tests 12/06/24 07:09 LABS/MEDS Laboratory Tests Test 12/06/24 07:09 White Blood Count 6.9 K/uL (4.8-10.8) Red Blood Count 4.61 MIL/uL (4.50-6.20) Hemoglobin 14.2 g/dL (14.0-18.0) Hematocrit 41.9 % (42-54) L Mean Corpuscular Volume 90.9 fL (79-99) Mean Corpuscular Hemoglobin 30.8 pg (27.0-33.0) Mean Corpuscular Hemoglobin Concent 33.9 g/dL (32.0-36.0) Red Cell Distribution Width 12.5 % (11.0-15.5) Platelet Count 141 K/uL (130-400) Mean Platelet Volume 10.6 fL (7.5-10.5) H Nucleated Red Blood Cells 0.0 % (0.0-0.19) Sodium Level 140 mmol/L (136-145) Potassium Level 4.2 mmol/L (3.5-5.1) Chloride Level 104 mmol/L (101-111) Carbon Dioxide Level 30 mmol/L (21-32) Blood Urea Nitrogen 15 mg/dL (7-18) Creatinine 1.0 mg/dL (0.5-1.3) Glomerular Filtration Rate Calc 78 mL/min (>90) Random Glucose 103 mg/dL (70-105) Total Calcium 8.5 mg/dL (8.5-10.1) Current Medications Sodium Chloride 1,000 ml @ 0 mls/hr Q0M IV Last administered on 12/05/24at 10:15; Start 12/05/24 at 09:30; Stop 01/04/25 at 09:29 Lidocaine HCl 20 ml STK-MED ONCE .ROUTE; Start 12/05/24 at 12:19; Stop 12/05/24 at 12:19; Status DC Iohexol 35,000 mg STK-MED ONCE IV; Start 12/05/24 at 12:19; Stop 12/05/24 at 12:19; Status DC Heparin Sodium/ Sodium Chloride 1,000 ml @ As Directed STK-MED ONCE IV; Start 12/05/24 at 12:19; Stop 12/05/24 at 12:19; Status DC Nitroglycerin 50 mg STK-MED ONCE .ROUTE; Start 12/05/24 at 12:19; Stop 12/05/24 at 12:20; Status DC Fentanyl Citrate 100 mcg STK-MED ONCE .ROUTE; Start 12/05/24 at 12:33; Stop 12/05/24 at 12:34; Status DC Midazolam HCl 2 mg STK-MED ONCE .ROUTE; Start 12/05/24 at 12:34; Stop 12/05/24 at 12:34; Status DC Bivalirudin 250 mg STK-MED ONCE IV; Start 12/05/24 at 12:50; Stop 12/05/24 at 12:50; Status DC Bivalirudin 250 mg STK-MED ONCE IV; Start 12/05/24 at 13:23; Stop 12/05/24 at 13:24; Status DC Heparin Sodium/ Sodium Chloride 500 ml @ As Directed STK-MED ONCE IV; Start 12/05/24 at 13:24; Stop 12/05/24 at 13:24; Status DC Atropine Sulfate 1 mg STK-MED ONCE IVP; Start 12/05/24 at 13:48; Stop 12/05/24 at 13:48; Status DC Midazolam HCl 2 mg STK-MED ONCE .ROUTE; Start 12/05/24 at 13:56; Stop 12/05/24 at 13:56; Status DC Iohexol 35,000 mg STK-MED ONCE IV; Start 12/05/24 at 14:00; Stop 12/05/24 at 14:00; Status DC Eptifibatide 100 ml @ As Directed STK-MED ONCE IV; Start 12/05/24 at 14:02; Stop 12/05/24 at 14:02; Status DC Adenosine 6 mg STK-MED ONCE IV; Start 12/05/24 at 14:02; Stop 12/05/24 at 14:02; Status DC Clopidogrel Bisulfate 300 mg STK-MED ONCE .ROUTE; Start 12/05/24 at 14:15; Stop 12/05/24 at 14:15; Status DC Sodium Chloride 1,000 ml @ 100 mls/hr Q10H IV; Start 12/05/24 at 14:30; Stop 12/05/24 at 20:29; Status DC Clopidogrel Bisulfate 75 mg DAILY PO; Start 12/06/24 at 09:00; Stop 01/05/25 at 08:59 Metoprolol Tartrate 5 mg Q5M PRN IV; Start 12/05/24 at 14:30 Nitroglycerin 0.4 mg AD PRN SL; Start 12/05/24 at 14:30; Stop 01/04/25 at 14:29 Hydralazine HCl 10 mg Q20M PRN IV; Start 12/05/24 at 14:30; Stop 01/04/25 at 14:29 Dextrose 50 ml AD PRN IV; Start 12/05/24 at 14:30; Stop 01/04/25 at 14:29 Glucagon 1 mg AD PRN IM; Start 12/05/24 at 14:30; Stop 01/04/25 at 14:29 Amlodipine Besylate 5 mg AM PO; Start 12/06/24 at 09:00; Stop 01/05/25 at 08:59 Aspirin 81 mg AM PO; Start 12/06/24 at 09:00; Stop 01/05/25 at 08:59 Atorvastatin Calcium 20 mg DAILY PO; Start 12/06/24 at 09:00; Stop 01/05/25 at 08:59 Lisinopril 20 mg BID PO; Start 12/05/24 at 21:00; Stop 01/04/25 at 20:59 Metoprolol Tartrate 25 mg BID PO Last administered on 12/05/24at 21:04; Start 12/05/24 at 21:00; Stop 01/04/25 at 20:59 Pantoprazole Sodium 40 mg DAILY PO; Start 12/06/24 at 09:00; Stop 01/05/25 at 08:59 Acetaminophen 500 mg Q6H PRN PO; Start 12/05/24 at 17:00; Stop 01/04/25 at 16:59 Sodium Chloride 500 ml @ 0 mls/hr Q0M IV; Start 12/06/24 at 07:00; Stop 01/05/25 at 06:59 PHYSICAL EXAMINATION: GENERAL: No acute distress. HEENT: Normocephalic, atraumatic. CARDIAC: Positive S1 and S2. No murmurs. LUNGS: Clear to auscultation bilaterally. ABDOMEN: Bowel sounds present, soft, nontender. EXTREMITIES: No edema bilaterally. Right groin stable NEUROLOGIC: Cranial nerves 2-12 grossly intact. PSYCHIATRIC: Calm. TELEMETRY: Unremarkable ASSESSMENT: Status post angioplasty and stent placement to proximal mid and distal LAD with the use of a 3 mm x 34 mm [place] jimmy stent to mid and distal portion (post dilated to 3.5 mm) and a 4.5 mm [place] jimmy stent to mid LAD Pending intervention to left circumflex vessel PLAN: Patient will be discharged home today on dual antiplatelet therapy. Home medications will be continued. He has been cautioned on blood pressures at home and to check them daily Patient will be scheduled for planned intervention to left circumflex vessel on Thursday of this week. Patient can be discharged home. BRYANNA TOSCANO MD Dec 06, 2024 07:56
[2024-12-06 08:05] VITALS: O2SAT 99
--- NOTE | 2024-12-06 08:21 | NUR ---
SPOKE WITH ERIK FROM REGISTRATION. PATIENT TO COME FOR PREOP ON THURSDAY AT 1100. ORDERS FAXED TO SCHEDULING.
--- NOTE | 2024-12-06 08:22 | NUR ---
DR. PRECIADO NOTIFIED THAT PATIENT CLEARED FOR DC BY CARDIOLOGY.
[2024-12-06] MEDS: ASPIRIN 81 MG EC TAB PO SCH (08:44)
[2024-12-06] MEDS: amLODIPine 5 MG TAB PO SCH (08:44)
--- NOTE | 2024-12-06 10:13 | DS ---
Discharge Summary Hospital Course Summary: A 74-year-old male with past medical history of hypertension, hyperlipidemia, coronary artery disease, history of esophageal stricture status post balloon dilation, was admitted to the hospital with complaints of shortness of breath. Patient has been having SOB with minimal exertion ongoing for the last 1 year, dizziness, and stressed. He had angioplasty and stent placement to left anterior descending artery mid section 3.5 x 20 mm medicated stent to the distal left circumflex in 2007. He follows Dr. Allison on an outpatient basis and a CT angiogram that revealed Instent restenosis. Therefore Dr. Allison recommended a repeat PCI to evaluate his coronary circulation. Patient underwent coronary angiography on December 05 2024 revealing InStent restenosis of 95% of LAD stent in 99% of left circumflex stent. Patient underwent stent placement to proximal mid and distal LAD with the use of a 3 mm X 34 mm [place] jimmy stent to mid and distal portion (post dilated to 3.5 mm) and a 4.5 mm [place] jimmy stent to mid LAD. Patient is pending intervention to the left circumflex vessel on 12/09/2024. Patient will be discharged home on dual antiplatelet therapy with aspirin and clopidogrel, advised to continue home medications and check blood pressure regularly. Patient was advised to keep the femoral access site clean and dry. Patient was advised to return on 12/08/2024 for preop workup before scheduled PCI to the LCX on 12/09/2024. State Tested Nursing Assistant(s): Cardiology, Dr. Allison Procedure(s): PATIENT: BRYANNA GAINES JR MR#: [id number] : 1950 SEX: M AGE: 74 LOCATION: [facility] ORDER 34 STATUS: PRE [facility] [place]PORT#: [id number] SERVICE 32 REASON: PRE OP ORDERING PHYSICIAN: BRYANNA ALLISON MD PROCEDURE: CXR1VW - CHEST 1VW EXAM: CR Chest, 1 View. CLINICAL HISTORY: PRE OP COMPARISON: None provided. FINDINGS: LUNGS: Density at the right lung base may reflect a pulmonary nodule or nipple shadow, overall dimension is 1.1 x 1.2 cm. Recommend repeat radiographs with nipple markers or CT imaging for further evaluation. PLEURAL SPACES: No evidence of pleural effusion or pneumothorax. MEDIASTINUM: Cardiac size and mediastinal contours within normal limits. BONES: No aggressive appearing osseous lesion seen. IMPRESSION: 1. 1.1 x 1.2 cm density at the right lung base, may represent pulmonary nodule versus nipple shadow. Recommend repeat radiographs with nipple markers or CT imaging for further evaluation. /[place] DICTATED BY: OH CHANDLER Jr., MD DATE: 12/02/241540 ELECTRONICALLY SIGNED BY: OH CHANDLER Jr., MD DATE: 12/02/241540 PROCEDURES: 1. Right common femoral arterial sheath placement. 2. Selective coronary angiogram. 3. Angioplasty to mid and distal LAD 4. Lithotripsy angioplasty to mid LAD with a 4 mm x 12 mm lithotripsy balloon for a total of eight treatments with shockwave device deployed to six atmospheres 5. Intravascular ultrasound of proximal mid and distal LAD. 6. 3 mm x 34 mm jimmy [place] stent to mid and distal LAD initially deployed to 3.20 mm and then post dilated to 3.50 mm 7. 4.5 mm x 26 mm jimmy [place] stent to mid LAD in an overlapping fashion with previously placed 3 mm stent deployed to 4.50 mm. INDICATION: Abnormal stress test Class three angina DESCRIPTION OF PROCEDURE: The patient was brought to the catheterization suite and prepped and draped in sterile fashion. IV was started, and not already in place and both groins were exposed for arterial access. 1% lidocaine was used for local anesthesia and then a micropuncture kit was used to gain access once free-flowing blood was seen, modified Seldinger technique was utilized to place a 6 [place] sheath into the right common femoral artery. Next, preformed JL4 and JR 4 catheters were used to selectively engage the crow coronary vessels and multiple hand contrast injections were performed in different views to define the coronary anatomy. Please see below FINDINGS: The left main artery bifurcates in the LAD and left circumflex in his free of significant stenosis. The stent in the mid LAD has not stent restenosis of 95-98% with an area of stenosis after a stent of 80% and in the distal LAD of 70%. Diagonal branch 1. And diagonal branch 2., high off the LAD and are free of any significant disease. There was a large septal rail grinder at diagonal branch 2. Which was patent. The left circumflex artery in its proximal mid segment is free of any significant disease in the distal interventricular groove circ there was 99% in stent restenosis present. The right coronary artery has no appreciable stenoses or atherosclerosis present. It is a dominant system giving rise to the RPDA and RPL. INTERVENTIONAL REPORT: After diagnostic angiography was performed it was felt intervention should be attempted in a staged fashion to the LAD and then left circumflex. Therefore a six [place] q.4 guide catheter was placed into the left coronary system and a ch [employer] PT extra-support wire was placed in the distal ongoing LAD. Initially a 2.5 mm x 20 mm balloon semi compliant was then used to pre dilate the affected regions in overlapping fashion. Intravascular ultrasound was performed assessing previously placed stent and the degree of calcium burden above the previously placed stent as well as the sizing of the stent from 17 years ago. This vessel appeared to be 4.5-5 mm in diameter in the mid and proximal portion of previously placed LAD stent. There was also a significant calcium burden noted. Next we went in an with a 3.5 mm x 12 mm noncompliant balloon up to 3.7 mm before significant in stent restenosis dog bone expanded the stent. Next I went in with a 4 mm x 12 mm shockwave device and performed lithotripsy on midportion of LAD and off-label use on proximal portion of previously placed stent. This was done for a total of eight tr eatments. This was done at six atmospheres. Next I then placed a 3 mm x 34 mm jimmy [place] stent to the distal LAD covering distal 70% lesion and brought back up to mid section and deployed to 3.20 mm. Next I used the 4.5 mm x 26 mm jimmy [place] stent in an overlapping fashion with 3 mm stent up to the mid section just below diagonal branch 2. And deployed to 4.5 mm. Follow up intravascular ultrasound revealed the distal portion of the distal LAD stent to be or to need further postdilatation therefore we I went back in with a 3.5 mm x 12 mm NC balloon and post dilated the 3 mm stent to 3.50 mm. Follow up contrast injection well no evidence of dissection or perforation with JUAN two flow noted then adenosine was administered total of 200 mics initially given at 50 mcg then repeated at 50 mcg and then finally at 100 mcg. JUAN three flow then resulted. At end of case Perclose device was used for closure of arteriotomy site and no complications occurred. and RECOMMENDATIONS: Recommend patient stay in the hospital overnight for IV hydration. We will start Integrilin drip. Will start dual antiplatelet therapy Schedule patient for intervention to left circumflex in stent restenosis on Thursday of this week. BRYANNA ALLISON MD Dec 05, 2024 15:14 Electronically Signed by: BRYANNA ALLISON MD12/05/24 1514 Electronically Co-Signed by: Assessment/Plan: ASSESSMENT: Class three angina status post heart catheterization with angioplasty and drug eluting stent placement to mid and distal LAD, mid LAD Coronary artery disease Hypertension Hyperlipidemia History of esophageal stricture status post balloon dilation Discharge Instructions: ADMISSION DATE : 12/05/24 DISCHARGE DATE:12/06/24 DISPOSITION : Home CONDITION : Stable MANAGER SCIENCE(S) : Dr. Allison, bottom painter FOLLOW UP APPOINTMENT(S) : f/u with Dr. Allison on 12/08/24 for pre op workup and for scheduled PCI on 12/09/2024. PROCEDURES: PCI with Drug eluting stent placed in the IMAGING (S) : report attached to summary MICROBIOLOGY : report attached to summary ACTIVITY : ad alfredo HOME MEDICATIONS : Continued Home Medications: Reported Medications Nitroglycerin (Nitroglycerin) 0.4 Mg Tab.subl, 0.4 MG SL AD for CHEST PAIN, TAB.SL 12/02/24 Lisinopril (Lisinopril) 20 Mg Tablet, 20 MG PO BID, TAB 12/02/24 Metoprolol Tartrate (Metoprolol Tartrate) 25 Mg Tablet, 25 MG PO BID, TAB 07/03/19 Atorvastatin Calcium (Atorvastatin Calcium) 20 Mg Tablet, 20 MG PO DAILY, TAB 07/03/19 Omeprazole (Omeprazole) 40 Mg Capsule.dr, 40 MG PO DAILY, CAP 07/03/19 Aspirin (Aspir 81) 81 Mg Tablet.dr, 81 MG PO AM, TAB 12/30/16 Amlodipine Besylate (Amlodipine Besylate) 5 Mg Tablet, 5 MG PO AM, TAB 12/30/16 Discontinued Reported Medications Lactobacillus Combo No.11 (Probiotic) 1 Each Cap.sprink, 1 EACH PO DAILY, CAP.SPRINK 07/03/19 Lisinopril (Lisinopril) 40 Mg Tablet, 40 MG PO AM, TAB 12/30/16 Discontinued Scripts Acetaminophen (Tylenol) 500 Mg Tab, 500 MG PO q6 for 5 Days, #30 TAB Prov:SAMUEL BARRETO MD 10/12/23 Tamsulosin HCl (Flomax) 0.4 Mg Cap.er.24h, 0.4 MG PO DAILY for 30 Days, #30 CAPSULE. Prov:TIO MENDOZA Jr., MD 07/05/19 Levofloxacin (Levaquin) 500 Mg Tablet, 500 MG PO DAILY for 5 Days, #5 TAB Prov:TIO MENDOZA Jr., MD 07/05/19 New Medications: Clopidogrel Bisulfate (Plavix) 75 Mg Tablet 1 TAB PO DAILY for 30 Days, #30 TAB 0 Refills Continued Medications: Amlodipine Besylate (Amlodipine Besylate) 5 Mg Tablet 5 MG PO AM, TAB Aspirin (Aspir 81) 81 Mg Tablet.dr 81 MG PO AM, TAB Atorvastatin Calcium (Atorvastatin Calcium) 20 Mg Tablet 20 MG PO DAILY, TAB Lisinopril (Lisinopril) 20 Mg Tablet 20 MG PO BID, TAB Metoprolol Tartrate (Metoprolol Tartrate) 25 Mg Tablet 25 MG PO BID, TAB Nitroglycerin (Nitroglycerin) 0.4 Mg Tab.subl 0.4 MG SL AD for CHEST PAIN, TAB.SL Omeprazole (Omeprazole) 40 Mg Capsule.dr 40 MG PO DAILY, CAP Time spent arranging discharge: 1-30 minutes ATTESTATION BY PHYSICIAN I have seen and examined the patient. I reviewed the documentation, medical decision making, and treatment plan as noted by the resident provider above. I agree with the findings and plan of care. CHICA PRECIADO MD, HARSHAVARDHA MD Dec 06, 2024 10:13
[2024-12-06] MEDS ORDERED: CLOP-31 PO (10:19)
[2024-12-06 10:44] VITALS: BP 141/80; PULSE 57; RESP 19; TEMP 98.6
--- NOTE | 2024-12-06 10:52 | NUR ---
PATIENT ALERT AND ORIENTED X4 WITH SPOUSE AT BEDSIDE, BEING DISCHARGED HOME. PATIENT EDUCATED TO COME ON THURSDAY AT 1100 FOR PREOP FOR PROCEDURE ON THURSDAY MORNING. IV REMOVED WITHOUT COMPLICATIONS. PRESCRIPTION FOR ASA AND PLAVIX GIVEN, MEDICATIONS EXPLAINED, INCLUDING SIDE EFFECTS. PATIENT EDUCATED TO RESUME ALL HOME MEDS PER MD ORDER. ALL QUESTIONS ANSWERED, PATIENT AND SPOUSE VERBALIZED COMPLETE UNDERSTANDING. PATIENT GATHERED ALL BELONGINGS AND TOOK WITH HIM AT DISCHARGE.
== END 2024-12-06 11:00 | disposition home or self-care (01) ==
LOC: DAH 09:28 → DAHIP 09:29 → DAH 09:29 → 2DH 17:05
PROVIDERS: ADMIT Internal Medicine; ATTEND Internal Medicine
DX: I25.118 Atherosclerotic heart disease of native coronary artery with other forms of angina pectoris (principal); T82.855A Stenosis of coronary artery stent, initial encounter; R07.89 Other chest pain; E78.5 Hyperlipidemia, unspecified; I10 Essential (primary) hypertension; R42 Dizziness and giddiness; K22.2 Esophageal obstruction; Y83.1 Surgical operation with implant of artificial internal device as the cause of abnormal reaction of the patient, or of later complication, without mention of misadventure at the time of the procedure; Z79.899 Other long term (current) drug therapy; Z98.890 Other specified postprocedural states
CPT/HCPCS: 80048 ×2; 85025; 85610; 85730; 36415 ×2; 71045; 93005; 92978; 92972; 93454; 99156; 99157 ×5; 85027; C1769; C1887; C1894 ×2; C1725 ×2; C1874 ×2; C1760; C1761; C1753; Q9965 ×3; G0378 ×20; J0153; J3010; J3490 ×2; J7030; J0461; J2250 ×2; J1327; J1644 ×2; J0583 ×2; Q9967 ×2; A4215; A4223 ×3; A4222; A4221; A4663; A4216; A4606; C9600

== ENCOUNTER 2024-12-24 00:40 | Emergency (ER) | payer MEDICARE ==
[~2024-12-24] VITALS: Ht 182.9 cm; Wt 88.5 kg
[~2024-12-24 00:40] MED LIST changes: +CLOP-31 PO
[2024-12-24 00:41] VITALS: TEMP 98.1
--- NOTE | 2024-12-24 00:58 | ERN ---
ED Note History of Present Illness Stated Complaint: CHEST PAIN Chief Complaint: Chest Pain Time Seen by MD: 00:41 Dictation: This is a 74-year-old very pleasant male who presented to the emergency room with complaints of right-sided chest discomfort that started around 11:30 p.m.. Apparently patient went to bed and was sleeping and the pain woke him up suddenly he tried to go back to bed but the pain persisted and he was concerned and came into the ER for further evaluation he reported that he feels extremely bloated in the whole upper abdomen. He also reported nausea associated with it. No diaphoresis syncope. The pain is mostly in the right infra-axillary as well as anterior chest. He stated that when he had this pain he checked his blood pressure it was 180/107. He indicated that on 12/09/2024 he had a left heart catheterization and 2 new stents were placed by Dr. Mert Allison. No diarrhea he does not report any constipation and has a regular bowel movements. Pain is not associated with a breathing. No trauma. No shortness of breath. Patient states that this pain is completely different than his cardiac pain which felt more like a pressure however today it feels more like an ache starting in the lower epigastric area and across the ribcage to the anterior axillary line. Temperature 98.1 pulse 66 respirations 18 blood pressure 172/98 with a pulse oximetry of 98% on room air His chronic medical problems include coronary artery disease-[place] in 2007 and left heart catheterization 12/09/2024 status post stent placements, hypertension, prostatitis, gastritis Allergies: Coded Allergies: No Known Drug Allergies (Unverified Allergy, Unknown, 12/30/16) Home Meds Active Scripts Clopidogrel Bisulfate (Plavix) 75 Mg Tablet, 1 TAB PO DAILY for 30 Days, #30 TAB 0 Refills Prov:NOVA RICHARDS MD 12/06/24 Reported Medications Nitroglycerin (Nitroglycerin) 0.4 Mg Tab.subl, 0.4 MG SL AD for CHEST PAIN, TAB.SL 12/02/24 Lisinopril (Lisinopril) 20 Mg Tablet, 20 MG PO BID, TAB 12/02/24 Metoprolol Tartrate (Metoprolol Tartrate) 25 Mg Tablet, 25 MG PO BID, TAB 07/03/19 Atorvastatin Calcium (Atorvastatin Calcium) 20 Mg Tablet, 20 MG PO DAILY, TAB 07/03/19 Omeprazole (Omeprazole) 40 Mg Capsule.dr, 40 MG PO DAILY, CAP 07/03/19 Aspirin (Aspir 81) 81 Mg Tablet.dr, 81 MG PO AM, TAB 12/30/16 Amlodipine Besylate (Amlodipine Besylate) 5 Mg Tablet, 5 MG PO HS, TAB 12/30/16 Past Medical History Past Medical History: CAD, Heart Disease, Hypertension, [place], Prostatitis, Other Additional Past Medical Hx: GASTRITIS Surgical History: Other Surgical History Other: CARDIAC STENTS Family History: Negative Social History: Negative RN Note Reviewed/Agreed w/PFSH: Yes Review of System Dictation Constitutional: Negative for fever,chills, and weight loss Eyes: Negative for injury, pain,redness, and discharge ENT: Negative for injury,pain or swelling Cardiovascular: Positive for right-sided chest pain, palpitations, and edema Respiratory: Negative for shortness of breath, cough, and wheezing, Abdomen/GI: Negative for abdominal pain, nausea, vomiting, diarrhea, and constipation positive for stomach bloating Back: Negative for injury and pain : Negative for injury, bleeding and discharge MS/Extremity: Negative for injury and deformity Skin: Negative for rash, and discoloration Neuro: Negative for headache, weakness, numbness, tingling, and seizure Psych: Negative for suicide ideation, homicidal ideation, and hallucinations Initial Vital Sign VS Vital Signs Date Time Temp Pulse Resp B/P (MAP) Pulse Ox O2 Delivery O2 Flow Rate FiO2 12/24/24 00:41 98.1 66 18 172/98 98 Room Air 12/24/24 01:09 0 21 Physical Exam Dictation General: awake, alert, NAD Head/Face: Normocephalic, atraumatic Eyes: PERRL, EOMI, vision at baseline ENT: oral cavity clear, TMs clear, no signs of infection Neck: Trachea midline, supple, no nuchal rigidity Cardiovascular: RRR, normal S1/S2, No MRGs, no JVD Respiratory: CTAB, no respiratory distress, No rales or wheezes Abdomen: Soft, non-tender, non-distended, normal bowel sounds, no guarding or rebound. Skin: Warm, dry, normal turgor, no rash MS/Extremity: Pulses equal, no cyanosis, neurovascular intact, FROM Neuro: COAx4, GCS 15, strength 5/5, CN 2-12 intact, normal cerebellar exam, normal gait, Psych: Normal behavior, mood, and affect normal Extremities-trace edema without any palpable cords, Homans sign is negative Results (Laboratory/Radiology) Laboratory/Radiology Laboratory Tests Test 12/24/24 01:04 White Blood Count 6.1 K/uL (4.8-10.8) Red Blood Count 4.48 MIL/uL (4.50-6.20) L Hemoglobin 13.9 g/dL (14.0-18.0) L Hematocrit 40.0 % (42-54) L Mean Corpuscular Volume 89.3 fL (79-99) Mean Corpuscular Hemoglobin 31.0 pg (27.0-33.0) Mean Corpuscular Hemoglobin Concent 34.8 g/dL (32.0-36.0) Red Cell Distribution Width 12.0 % (11.0-15.5) Platelet Count 173 K/uL (130-400) Mean Platelet Volume 10.3 fL (7.5-10.5) Immature Granulocyte % (Auto) 0.5 % (0-1) Neutrophils (%) (Auto) 65.9 % (40.0-77.0) Lymphocytes (%) (Auto) 22.8 % (21.0-51.0) Monocytes (%) (Auto) 9.0 % (3.0-13.0) Eosinophils (%) (Auto) 1.5 % (0.0-8.0) Basophils (%) (Auto) 0.3 % (0.0-5.0) Neutrophils # (Auto) 4.0 K/uL (1.8-7.7) Lymphocytes # (Auto) 1.4 K/uL (1.0-4.8) Monocytes # (Auto) 0.6 K/uL (0.1-1.0) Eosinophils # (Auto) 0.09 K/uL (0.00-0.70) Basophils # (Auto) 0.02 K/uL (0.00-0.20) Absolute Immature Granulocyte (auto 0.03 K/uL (0-1) Nucleated Red Blood Cells 0.0 % (0.0-0.19) Sodium Level 142 mmol/L (136-145) Potassium Level 3.6 mmol/L (3.5-5.1) Chloride Level 105 mmol/L (101-111) Carbon Dioxide Level 28 mmol/L (21-32) Blood Urea Nitrogen 10 mg/dL (7-18) Creatinine 1.0 mg/dL (0.5-1.3) Glomerular Filtration Rate Calc 78 mL/min (>90) Random Glucose 128 mg/dL (70-105) H Total Calcium 8.5 mg/dL (8.5-10.1) Total Creatine Kinase 85 U/L (21-232) # Troponin I High Sensitivity 27 ng/L (4-75) Labs Reviewed?: Yes EKG Comment: Twelve lead EKG done on 12/24/2024 at 12:38 a.m. showed a heart rate of 63, [place] interval 183, QRS 91, QT/QTC 409/417 Impression normal sinus rhythm with no acute STT wave changes noted. Q-waves noted in the inferior leads that are very small. EKG rhythm strip shows a normal sinus rhythm it more of sinus bradycardia low voltage. Interpreted by ER MD Dr. Frazier X-RAY Comment: REASON: CHEST PAIN ORDERING PHYSICIAN: DENYS FRAZIER MD PROCEDURE: CXR1VW - CHEST 1VW EXAM: CR Chest, 1 view CLINICAL HISTORY: Chest pain. COMPARISON: Chest radiograph dated 07/02/2019. FINDINGS: The lungs show no infiltrates or other acute findings. No pleural effusion or pneumothorax. The cardiomediastinal silhouette is within normal limits. No acute osseous abnormality. Mild levoscoliosis and thoracic spondylosis. IMPRESSION: No acute cardiopulmonary process is evident. Compared to the prior study, there is no significant interval change. /[place] DICTATED BY: OH CHANDLER Jr., MD DATE: 12/24/24301 ELECTRONICALLY SIGNED BY: OH CHANDLER Jr., MD DATE: 12/24/24301 ED Course ED Course Orders Procedure Category Date Status Time Vital Signs Per CPOE 12/24/24 Transmitted Routine 00:41 Chest 1vw RAD 12/24/24 Resulted 00:41 12 Lead Ekg Tracing- EKG 12/24/24 Logged Technical 00:41 Oxygen By Nc/Pulse Ox CPOE 12/24/24 Transmitted 00:41 Maintain Iv CPOE 12/24/24 Transmitted 00:41 Iv Insertion CPOE 12/24/24 Transmitted 00:41 Cardiac Monitoring CPOE 12/24/24 Transmitted 00:41 Pulse Oximetry With CPOE 12/24/24 Transmitted Vs And Prn 00:41 Cbc With Differential LAB 12/24/24 Complete 00:41 Activity: Br W/Brp CPOE 12/24/24 Transmitted With Assist 00:41 Creatine Kinase, Total LAB 12/24/24 Complete 00:41 Troponin I High LAB 12/24/24 Complete Sensitivity 00:41 Urinalysis Profile LAB 12/24/24 Logged 00:41 Basic Metabolic Panel LAB 12/24/24 Complete 00:41 Morphine 2mg Syg PHA 12/24/24 Complete (Morphine 2mg Syg) 01:30 Pantoprazole 40mg Tab PHA 12/24/24 Complete (Protonix 40mg Tab 01:30 Current Medications Medications (Trade) Dose Ordered Sig/Flavia Route PRN Reason Start Time Stop Time Status Last Admin Dose Admin Morphine Sulfate (morPHINE 2MG SYG) 2 mg ONCE ONCE IVP 12/24/24 01:30 12/24/24 01:31 DC 12/24/24 01:22 Pantoprazole Sodium (PROTonix 40MG TAB) 40 mg ONCE ONCE PO 12/24/24 01:30 12/24/24 01:31 DC 12/24/24 01:22 Vital Signs Date Time Temp Pulse Resp B/P (MAP) Pulse Ox O2 Delivery O2 Flow Rate FiO2 12/24/24 01:09 58 18 165/89 99 Room Air* 0 21 12/24/24 00:41 98.1 66 18 172/98 98 Room Air We will perform diagnostic labs, advanced imaging and administer medications according to the patient's complaint. Once the results are available, will review and personally interpreted the labs to rule out any acute life- threatening emergency the trach require immediate intervention and treatment. I will then re-evaluate the patient after treatment and diagnostic exams have re turn to determine whether the patient requires any further testing, can safely be discharged home or need further admission to hospital for additional treatment and evaluation. 2:23 a.m. Labs reviewed-CBC is normal BNP 7 is with a normal limits troponins a re negative. Chest x-ray is unremarkable for any acute changes. 2:30 a.m. patient feels amazingly better after the pain med and PPI. I recommended admission to hospital as he recently had cath to make sure that the current presentation is not cardiac; patient and stated that he feels so much better that he has not appointment with cardiology as well as Gastroenterology soon and he would like to be discharged to home. I counseled him extensively on GERD precautions and also hiatal hernia precautions. Avoidance of caffeinated drinks, citrus spicy very spicy and greasy foods. I also recommended patient not sitting in his chair after eating pushing his stomach up into the chest cavity worsening the hiatal hernia pain. Verbalized full understanding HEART Score Response (Comments) Value History: Low suspicion (0) 0 EKG: Normal 0 Age: > 65yrs (+2) 2 Risk Factors: 1-2 risk factors (+1) 1 Initial Troponin: Normal limit (0) 0 HEART Score Risk: Low Risk for MACE (1-3) Total 3 Medical Decision Making MDM Differential diagnosis: Chest wall pain, hiatal hernia pain, costochondritis, unstable angina Rationale: Tests considered and ordered secondary to shared decision making include: Previous outside records reviewed: Old ER visits. Risk of complication and/or morbidity or mortality of patient management: None Medications-Per medication reconciliation Need for hospitalization: Patient does not meet criteria for hospitalization. Need for emergency major/minor surgery: No There are no social concerns with this patient. Prescription drug management Prescriptions will include symptomatic care Patient's prior external medical records from other ER visits were reviewed by me as indicated. Prior testing and results from previous visits were reviewed. Prior tests were taken into account with medical decision making and resource utilization, independent historian/historians were used to obtain complete medical history. I independently interpreted the test that were performed, results were reviewed by me and considered findings on radiology if ordered. Medical management and examination interpretation discussions were had by me with other qualified healthcare professionals as indicated for the patient's care. Problem List Problem List: (1) Hiatal hernia (2) Coronary artery disease (3) Uncontrolled hypertension (4) Right-sided chest pain DX & DISP Disposition: Discharge Departure Impression: Primary Impression: Hiatal hernia Additional Impressions: Coronary artery disease, Uncontrolled hypertension, Right-sided chest pain Condition: Stable Additional Instructions: Patient and the caregiver have been informed of all the diagnostic tests and the imaging conducted during the today's visit to the emergency room and has verbalized understanding of the results I have personally reviewed and interpreted all diagnostic exams performed here in the ER today as well as the vital signs documented by the nursing staff. The patient is now being discharged to home and should follow up with the primary care physician or the specialist as directed by the ER staff. Follow-up with primary care provider in 1 to 2 days. Take medications as directed here in the emergency room. Okay to continue home medications unless otherwise discussed during your visit in the emergency room today. Return to your nearest emergency room if symptoms worsen or if there is no improvement. Call 911 if you need immediate assistance. Take Tylenol or Motrin [id number] nter as needed and if no contraindications are present. Increase oral hydration. A wound culture or urine culture was ordered here in the emergency room department please follow-up with primary care provider and advise them to get repeat ports from our facility. If you had any Matthew wrap/splints that were applied here, please do not remove them until you see your primary care or [facility]. Referrals: ARUNA ARANA (PCP) DENYS FRAZIER MD Dec 24, 2024 00:58
[2024-12-24 01:12] LABS: IMMATURE GRANULOCYTE ABSOLUTE 0.03 K/uL (0-1); NUCLEATED RED BLOOD CELLS 0.0 % (0.0-0.19); PLATELET COUNT (AUTO) 173 K/uL (130-400); RED BLOOD CELL COUNT(AUTO) 4.48 MIL/uL (4.50-6.20); RED CELL DISTRIBUTION WIDTH 12.0 % (11.0-15.5); WHITE BLOOD COUNT (AUTO) 6.1 K/uL (4.8-10.8)
[2024-12-24 01:28] LABS: CREATININE 1.0 mg/dL (0.5-1.3); GLOMERULAR FILTR. RATE CALC 78.0 mL/min (>90); GLUCOSE,RANDOM 128.0 mg/dL (70-105); SODIUM SERUM 142.0 mmol/L (136-145); UREA NITROGEN, BLOOD 10.0 mg/dL (7-18)
[2024-12-24 01:33] LABS: CREATINE KINASE, TOTAL 85.0 U/L (21-232)
--- NOTE | 2024-12-24 02:03 | HMCIMG ---
EXAM: CR Chest, 1 view CLINICAL HISTORY: Chest pain. COMPARISON: Chest radiograph dated 07/02/2019. FINDINGS: The lungs show no infiltrates or other acute findings. No pleural effusion or pneumothorax. The cardiomediastinal silhouette is within normal limits. No acute osseous abnormality. Mild levoscoliosis and thoracic spondylosis. IMPRESSION: No acute cardiopulmonary process is evident. Compared to the prior study, there is no significant interval change. /[place]
[2024-12-24 02:38] VITALS: BP 158/82; PULSE 62; RESP 18; O2SAT 99
--- NOTE | 2024-12-24 10:21 | EKG ---
[facility] Test Date: 2024-12-24 Test Time: 00:38:38 Pat Name: BRYANNA GAINES Department: ED Patient ID: [id number] Room: Gender: Sales Representative Facility Services: [id number] : 1950 Requested By: DENYS PARKER Order Number: [id number] Reading MD: Ariela Obando Measurements Intervals [place] Rate: 63 P: 30 NV: 183 QRS: 25 QRSD: 91 T: 20 QT: 409 QTc: 417 Interpretive Statements Sinus rhythm Compared to ECG 12/02/2024 13:37:19 No significant changes Electronically Signed On 12-26-2024 15:07:07 CDT by Ariela Obando Please click the below link to view image of tracing.
== END 2024-12-24 02:54 | disposition home or self-care (01) ==
LOC: EDH 00:40
DX: K44.9 Diaphragmatic hernia without obstruction or gangrene (principal); I25.10 Atherosclerotic heart disease of native coronary artery without angina pectoris; R07.89 Other chest pain; I25.2 Old myocardial infarction; I11.9 Hypertensive heart disease without heart failure; Z79.02 Long term (current) use of antithrombotics/antiplatelets; Z79.899 Other long term (current) drug therapy; Z95.5 Presence of coronary angioplasty implant and graft
CPT/HCPCS: 99285; 96374; 71045; 82550; 84484; 80048; 85025; 36415; 93005; J2270